=== PATIENT | female | born 1990 | race Caucasian/White ===

== ENCOUNTER 2024-12-24 14:43 | Inpatient (IN) | payer OTHER ==
[~2024-12-24] VITALS: Ht 160 cm; Wt 83.0 kg
[2024-12-30] MEDS ORDERED: SOD+POT BICARB/CITRIC ACID 2 EA TABLET.EFF PO ONE (05:15)
[2024-12-30] MEDS ORDERED: LACTATED RINGER'S 1,000 ML IV PRN (05:15)
[2024-12-30 05:32] LABS: MCH 28.2 PG (25.6-32.2); MCHC 34.5 g/dL (32.2-35.5); MCV 81.5 fL (79.4-94.8); RBC 4.76 M/uL (3.93-5.22)
[2024-12-30 05:51] LABS: AMPHETAMINES, URINE NEGATIVE (NEGATIVE); BARBITURATES, URINE NEGATIVE (NEGATIVE); BENZODIAZEPINE, URINE NEGATIVE (NEGATIVE); CANNABINOID, URINE NEGATIVE (NEGATIVE); COCAINE, URINE NEGATIVE (NEGATIVE); ECSTASY, URINE NEGATIVE (NEGATIVE); FENTANYL, URINE NEGATIVE (NEGATIVE); METHADONE, URINE NEGATIVE (NEGATIVE); OPIATES, URINE NEGATIVE (NEGATIVE); OXYCODONE, URINE NEGATIVE (NEGATIVE); PHENCYCLIDINE, URINE NEGATIVE (NEGATIVE)
[2024-12-30 06:25] LABS: ABO A
[2024-12-30 06:26] LABS: ANTIBODY SCREEN NEGATIVE; RH POSITIVE
[2024-12-30] MEDS ORDERED: TRANEXAMIC ACID IN NACL,ISO-OS 0 ML IV ONE (06:50)
[2024-12-30] MEDS ORDERED: CEFAZOLIN SODIUM 2 GM in SODIUM CHLORIDE 0.9% 100 ML IV SCH (07:00)
[2024-12-30] MEDS ORDERED: LIDOCAINE HCL 2% 5 ML SDV ONE (07:09)
[2024-12-30] MEDS ORDERED: SODIUM CHLORIDE 0.9% 60 ML IV ONE (07:09)
[2024-12-30] MEDS ORDERED: Ropivacaine HCl 0.5% 30 ML VIAL ONE (07:09)
[2024-12-30] MEDS ORDERED: BUPIVACAINE 0.75% IN DEXTROSE 2 ML AMP ONE (07:09)
[2024-12-30] MEDS ORDERED: fentaNYL citrate 100 MCG/2 ML VIAL ONE (07:10)
[2024-12-30] MEDS ORDERED: OXYTOCIN/0.9 % SODIUM CHLORIDE 500 ML IV ONE ×2 (07:16→09:12)
[2024-12-30] MEDS ORDERED: OXYTOCIN 10 UNITS/ML VIAL ONE (07:18)
[2024-12-30] MEDS ORDERED: DEXAMETHASONE SOD PHOS 4 MG/ML VIAL ONE (07:20)
[2024-12-30] MEDS ORDERED: ACETAMINOPHEN 1,000 MG/100 ML VIAL ONE (07:24)
[2024-12-30] MEDS ORDERED: LACTATED RINGER'S 1,000 ML IV ONE (08:30)
--- NOTE | 2024-12-30 09:14 | NUR ---
12/30/24 0914 Alla Estrada 0904-PATIENT ARRIVED TO ROOM 104 FOR RECOVERY. PATIENT AWAKE DENIES PAIN OR NAUSEA. SPINAL LEVEL AT T9 GREATER THAN 95% RA. FUNDUS CHECKED FIRM 1 BELOW UMBILICUS LIGHT RUBRA DRAINAGE. DIONICIO DA SILVA AT BEDSIDE ASSESSING. OXYTOCIN INFUSING TO RIGHT ARM CDI. SR HR 60'S 0910-PATIENT AWAKE DENIES PAIN OR NAUSEA. CALL LIGHT IN REACH
[2024-12-30] MEDS ORDERED: IBLOOD GLUCOSE TEST STRIP 1 EA TEST VI PRN (09:30)
[2024-12-30] MEDS ORDERED: HYDROmorphone HCL 1 MG/ML SYR IV PRN (09:30)
[2024-12-30] MEDS ORDERED: NALOXONE HCL 0.4 MG SYR IV PRN ×2 (09:30)
[2024-12-30] MEDS ORDERED: MORPHINE SULFATE 4 MG/ML VIAL IV PRN (09:30)
[2024-12-30] MEDS ORDERED: fentaNYL citrate 50 MCG/ML SDV IV PRN (09:30)
[2024-12-30 09:31] VITALS: BP 118/69
[2024-12-30] MEDS ORDERED: SENNOSIDES/DOCUSATE 1 EA TAB PO SCH (10:13)
[2024-12-30] MEDS ORDERED: METOCLOPRAMIDE HCL 10 MG/2 ML SDV IV PRN (10:15)
[2024-12-30] MEDS ORDERED: PROMETHAZINE HCL 25 MG TAB PO PRN (10:15)
[2024-12-30] MEDS ORDERED: PROMETHAZINE HCL 25 MG SUPP PR PRN (10:15)
[2024-12-30] MEDS ORDERED: OXYCODONE/APAP 5/325 TAB PO PRN (10:15)
[2024-12-30] MEDS ORDERED: LIDOCAINE 2% VISCOUS 6 ML SYR TOP ONE (10:15)
[2024-12-30] MEDS ORDERED: PROCHLORPERAZINE EDISYLATE 10 MG/2 ML VIAL IV PRN (10:15)
[2024-12-30] MEDS ORDERED: OXYTOCIN/0.9 % SODIUM CHLORIDE 500 ML IV SCH (10:15)
[2024-12-30] MEDS ORDERED: OXYCODONE HCL 5 MG TAB PO PRN (10:15)
[2024-12-30] MEDS ORDERED: HYDROCODONE/ACETA 5/325 TAB PO PRN (10:15)
[2024-12-30] MEDS ORDERED: LACTATED RINGER'S 1,000 ML IV SCH (10:16)
[2024-12-30] MEDS ORDERED: SIMETHICONE 80 MG CHEW PO SCH (11:00)
[2024-12-30] MEDS ORDERED: KETOROLAC TROMETHAMINE 30 MG/ML VIAL IV SCH (14:00)
[2024-12-30] MEDS ORDERED: LIDOCAINE HCL 4% 1 EACH PATCH TD SCH (17:30)
[2024-12-31] MEDS ORDERED: LACTATED RINGER'S 1,000 ML IV SCH (05:00)
[2024-12-31 05:27] LABS: MCH 28.2 PG (25.6-32.2); MCHC 34.1 g/dL (32.2-35.5); MCV 82.8 fL (79.4-94.8); RBC 3.83 M/uL (3.93-5.22)
[2024-12-31] MEDS ORDERED: LIDOCAINE PATCH REMOVAL 1 EA TD SCH (08:00)
[2024-12-31] MEDS ORDERED: IBUPROFEN 600 MG TAB PO SCH (14:00)
--- NOTE | 2025-01-01 12:10 | PATH ---
[facility] [address] [place], [place] [address] Signed SPECIMEN(S): A FALLOPIAN TUBES, BILATERAL SPECIMEN SOURCE: A. FALLOPIAN TUBES, BILATERAL CLINICAL HISTORY: Repeat , prophylactic removal of fallopian tubes FINAL PATHOLOGIC DIAGNOSIS: Bilateral fallopian tubes: - Two segments of benign fimbriated oviduct. JVR MICROSCOPIC EXAMINATION: Histologic sections of all submitted blocks are examined by light microscopy. These findings, together with the gross examination, support the pathologic diagnosis. GROSS DESCRIPTION: The specimen, labeled and designated "Nathe, bilateral fallopian tubes," is received in formalin and consists of two red-brown fimbriated fallopian tube segments (7.5 cm in length and ranging in diameter from 0.6 to 1.1 cm, and 5.2 cm in length and ranging in diameter from 0.9 to 1.0 cm). One of the segments is arbitrarily inked blue. Both segments are serially sectioned to reveal red-brown soft cut surfaces. [employer] sections including the fimbriae entirely are submitted in cassette (A1-A2). VB (under the direct supervision of a pathologist) The Gross Description was prepared using a voice recognition system. The report was reviewed for accuracy; however, sound-alike word errors, addition and/or deletions may occur. If there is any question about this report, please contact Client Services. ADDITIONAL NOTES: Immunohistochemical and/or in situ hybridization studies if performed in this case included appropriate positive controls that reacted as expected. This test was developed and its performance characteristics determined by [facility]. It has not been cleared or approved by the U.S. Food and Drug Administration. The FDA has determined that such clearance or approval is not necessary. This test is used for clinical purposes. It should not be regarded PATIENT NAME: JOVON WERNER PATHOLOGY DATE OF : 89 REPORT #: [id number] PHYSICIAN: [facility] PATHOLOG[facility] PCP: HENRIK MARQUEZ ([place]) DO REPORT IS CONFIDENTIAL AND NOT TO BE RELEASED WITHOUT AUTHORIZATION [facility] [address] [place] [address], [place] [address] Signed as investigational or for research. [facility] is certified under the Clinical Laboratory Improvement Amendments of 1988 (CLIA) as qualified to perform high complexity clinical laboratory testing. PERFORMING LABORATORY: Technical component was performed by [facility], [address] [place] [id number] (CLIA# [id number]). Professional interpretation was performed by [facility] [place] - [address] [place] [address] (CLIA#: [id number]). Diagnostician: Jose Alejandro Kasper MD Pathologist Electronically Signed 01/01/2025 Copies: ~ PATIENT NAME: JOVON WERNER PATHOLOGY DATE OF : 89 REPORT #: [id number] PHYSICIAN: [facility] PCP: HENRIK MARQUEZ ([place]) DO REPORT IS CONFIDENTIAL AND NOT TO BE RELEASED WITHOUT AUTHORIZATION
== END 2024-12-31 18:15 | disposition home or self-care (01) | DRG 785 ==
LOC: FBC 12-30 04:55
PROVIDERS: ADMIT Student in an Organized Health Care Education/Training Program; ATTEND Student in an Organized Health Care Education/Training Program
PROC: 10D00Z1 Extraction of Products of Conception, Low, Open Approach (ICD-10-PCS; principal; 2024-12-30 07:30)
PROC: 0UT70ZZ Resection of Bilateral Fallopian Tubes, Open Approach (ICD-10-PCS; 2024-12-30 07:30)
DX: O34.211 Maternal care for low transverse scar from previous cesarean delivery (principal); Z30.2 Encounter for sterilization; Z91.048 Other nonmedicinal substance allergy status
CPT/HCPCS: 01961; 36415; 80307; 85027; 86850; 86900; 86901; A9270; J0131; J0688; J1100; J1885; J2003; J2405; J2590; J2795; J3010; J7121